=== PATIENT | male | born 1995 | race Two or more races ===

== ENCOUNTER 2020-11-14 19:08 | Emergency (ER) | payer OTHER, MEDICAID ==
[~2020-11-14] VITALS: Ht 165.1 cm; Wt 84.0 kg
[2020-11-14] MEDS ORDERED: IBUPROFEN 400MG TABLET PO ONE (20:15)
[2020-11-14] MEDS ORDERED: IBUP-2028 MT (20:29)
[2020-11-14 20:51] VITALS: BP 155/94
== END 2020-11-14 21:20 | disposition home or self-care (01) ==
LOC: ER 19:08
DX: M54.5 Low back pain (principal); V43.62XA Car passenger injured in collision with other type car in traffic accident, initial encounter; Y93.89 Activity, other specified; Y92.488 Other paved roadways as the place of occurrence of the external cause
CPT/HCPCS: 72100; 99283